=== PATIENT | male | born 1970 | race Caucasian/White ===

== ENCOUNTER 2018-06-08 14:19 | Emergency (ER) | payer OTHER ==
[2018-06-08] MEDS ORDERED: diphenhydrAMINE HCL 50 MG/ML VIAL ONE (14:26)
[2018-06-08] MEDS ORDERED: methylPREDNISolone SODIUM SUC 125 MG/2 ML VIAL ONE (14:26)
[2018-06-08] MEDS ORDERED: diphenhydrAMINE HCL 50 MG/ML VIAL IV ONE (14:35)
[2018-06-08 14:43] VITALS: TEMP 97.5
[2018-06-08] MEDS ORDERED: PANTOPRAZOLE SODIUM IV 40 MG VIAL IV ONE (14:51)
[2018-06-08] MEDS ORDERED: methylPREDNISolone SODIUM SUC 125 MG/2 ML VIAL IV ONE (14:53)
--- NOTE | 2018-06-08 14:57 | RAD ---
EXAM: Single view chest. INDICATION: Anaphylaxis. COMPARISON: Chest x-ray: 03/25/2013. FINDINGS: Cardiac silhouette: Unremarkable. Sidra: Unremarkable. Lobar consolidation: None. Pleural effusion: None. Pneumothorax: None. Other: None. Bones: Unremarkable. Other: None. IMPRESSION: 1. No acute cardiopulmonary process. Electronically signed by: Endy Rocha MD 06/08/2018 2:55 PM CDT Workstation: [id number]
--- NOTE | 2018-06-08 15:42 | ED.PDOC ---
History of Present Illness - General Chief Complaint: Bite: Animal/Insect/Human Stated Complaint: multiple bee stings Time Seen by Provider: 06/08/18 14:35 Source: patient Exam Limitations: no limitations - History of Present Illness Initial Comments: the patient is a 48-year-old male presenting to emergency room secondary to anaphylactic shock from multiple bee stings. The patient apparently wandered into a beehive. He was stung more than 20 times. Most of the bee stingers were removed by EMS prior to his arrival here. He was in anaphylactic shock upon arrival by EMS with a blood pressure of 80 over palp and he was altered. He received 0.5 mg of IM epinephrine and was normotensive though tachycardic upon arrival here. No evidence of any hypoxia and lung shelby are clear here. He is alert and oriented 4. He is flushed and diaphoretic. He does have some mild periorbital swelling. Again lungs are clear. No history of any anaphylaxis in the past. No heart history. He has smoked for many years but no formal diagnosis of any COPD. Timing/Duration: momentarily Severity: severe Improving Factors: medication Worsening Factors: nothing Associated Symptoms: diaphoresis, headaches, malaise Allergies/Adverse Reactions: Allergies NO KNOWN ALLERGY Allergy (Verified 02/23/13 10:55) Review of Systems - Review of Systems Constitutional: States: diaphoresis, malaise EENTM: States: nose congestion Respiratory: States: no symptoms reported Cardiology: States: edema - periorbital, palpitations Gastrointestinal/Abdominal: States: nausea Genitourinary: States: no symptoms reported Musculoskeletal: States: no symptoms reported Skin: States: see HPI Neurological: States: headache - from where he was stung by the bees Endocrine: States: excessive sweating All other Systems: No Change from Baseline Past Medical History (General) - Patient Medical History Hx Diabetes: No Surgical History: appendectomy, other Family Medical History - Family History Mother Family History: No Known Physical Exam - Physical Exam General Appearance: Alert, Anxious Eye Exam: bilateral normal Ears, Nose, Throat: hearing grossly normal, nasal congestion Neck: non-tender, full range of motion, supple Respiratory: lungs clear, normal breath sounds, no respiratory distress, no accessory muscle use Cardiovascular/Chest: normal peripheral pulses, no edema, other - sinus tachycardia consistent with epinephrine Peripheral Pulses: radial,right: 2+, radial,left: 2+, dorsalis pedis,right: 2+, dorsalis pedis,left: 2+ Gastrointestinal/Abdominal: non tender, soft Rectal Exam: deferred Back Exam: no CVA tenderness, no vertebral tenderness Extremity: normal range of motion, no pedal edema, no calf tenderness, normal capillary refill Neurologic: tar chaser II-XII nml as tested - e is appropriately anxious, no motor/ sensory deficits, alert, normal mood/affect, oriented x 3 Skin Exam: other - flushed and diaphoretic. Bee stings to the feet, legs, arms , scalp. Comments: Vital Signs - 24 hr 06/08/18 06/08/18 14:20 14:55 Temperature 97.5 F L Pulse Rate [ 113 H 106 H apical] Respiratory 28 H 22 Rate Blood Pressure 134/86 136/84 [right brachial ] O2 Sat by Pulse 95 94 L Oximetry Progress - Progress Progress: 06/08/18 15:45 the patient is a 48-year-old male presenting secondary to anaphylaxis after multiple bee stings. The epinephrine that he received with PMS has gone a long way to correct the issue by time of arrival here. He has received IV Benadryl and IV Solu-Medrol and will likely need several more doses over the next 24 hours. He is not requiring any supplemental oxygen and is in no respiratory distress. Admitted for further monitoring and management as required symptomatically. No recurrence of the hypotension. 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 This will need to be followed as an outpatient. Continue telemetry monitoring. The patient does have some significant lactic acidosis and is receiving low-flow IV fluids. The lactic acidosis is no doubt from the hypotensive episode. Follow closely. - Results/Orders Results/Orders: Laboratory Tests 06/08/18 06/08/18 06/08/18 14:49 14:49 14:49 WBC 14.0 H RBC 5.55 Hgb 18.3 H Hct 54.0 H MCV 97.4 H MCH 32.9 H MCHC 33.8 RDW 13.2 Plt Count 226 MPV 8.2 Absolute Neuts (auto) 10.90 H Absolute Lymphs (auto) 2.60 Absolute Monos (auto) 0.40 Absolute Eos (auto) 0.10 Absolute Basos (auto) 0.00 Neutrophils % 78.0 Lymphocytes % 18.4 L Monocytes % 2.5 Eosinophils % 0.8 L Basophils % 0.3 PT 9.9 INR 0.99 PTT (SP) 25.6 Sodium 145 Potassium 3.6 Chloride 110 Carbon Dioxide 22 Anion Gap 16.6 BUN 15 Creatinine 1.18 BUN/Creatinine Ratio 12.7 Random Glucose 133 H Serum Osmolality 291.4 Lactic Acid Calcium 8.8 Total Bilirubin 1.0 AST 30 ALT 25 Alkaline Phosphatase 63 Creatine Kinase 90 CK-MB (CK-2) 2.6 CK-MB (CK-2) % Not Reportable Troponin I 0.05 B-Natriuretic Peptide < 5.0 Serum Total Protein 6.9 Albumin 4.2 Globulin 2.7 Albumin/Globulin Ratio 1.6 06/08/18 14:49 WBC RBC Hgb Hct MCV MCH MCHC RDW Plt Count MPV Absolute Neuts (auto) Absolute Lymphs (auto) Absolute Monos (auto) Absolute Eos (auto) Absolute Basos (auto) Neutrophils % Lymphocytes % Monocytes % Eosinophils % Basophils % PT INR PTT (SP) Sodium Potassium Chloride Carbon Dioxide Anion Gap BUN Creatinine BUN/Creatinine Ratio Random Glucose Serum Osmolality Lactic Acid 5.8 H* Calcium Total Bilirubin AST ALT Alkaline Phosphatase Creatine Kinase CK-MB (CK-2) CK-MB (CK-2) % Troponin I B-Natriuretic Peptide Serum Total Protein Albumin Globulin Albumin/Globulin Ratio hest x-ray is clear. Departure - Departure Clinical Impression: Insect bites Qualifiers: Encounter type: initial encounter Qualified Code(s): W57.XXXA - Bitten or stung by nonvenomous insect and other nonvenomous arthropods, initial encounter Anaphylaxis Qualifiers: Encounter type: initial encounter Qualified Code(s): T78.2XXA - Anaphylactic shock, unspecified, initial encounter Disposition: Admit Patient Decision To Admit - Decistion To Admit Decision to Admit Reason: Medical Nature Decision to Admit Date: 06/08/18 Decision to Admit Time: 15:47
[2018-06-08] MEDS ORDERED: predniSONE 20 MG TAB PO ONE (16:02)
[2018-06-08 16:27] VITALS: BP 138/92; O2SAT 96
== END 2018-06-08 16:26 | disposition left against medical advice (07) ==
LOC: ER 14:19
DX: T63.441A Toxic effect of venom of bees, accidental (unintentional), initial encounter (principal); T78.2XXA Anaphylactic shock, unspecified, initial encounter; Z53.29 Procedure and treatment not carried out because of patient's decision for other reasons; R11.0 Nausea; Y92.9 Unspecified place or not applicable; Y93.H2 Activity, gardening and landscaping
CPT/HCPCS: 36415; 71045; 80053; 82550; 82553; 83605; 83880; 84484; 85025; 85610; 85730; J1200; J2930; J7512